=== PATIENT | female | born 1940 | race Caucasian/White ===

== ENCOUNTER → 2023-03-23 16:07 | Outpatient (REF) | payer MEDICARE, SELFPAY | LOC: RAD 16:07 | PROVIDERS: ATTENDING PHYSICIAN Family Medicine | DX: R42 Dizziness and giddiness (principal) | CPT/HCPCS: 70450 ==

== ENCOUNTER → 2023-03-27 13:41 | Outpatient (REF) | payer MEDICARE, SELFPAY ==
[2023-03-27 14:38] LABS: Phosphorus 4.6 mg/dl (2.5-4.5)
[2023-03-27 17:14] LABS: Folate 15.4 ng/ml (2.76-20); Vitamin B12 960 pg/ml (239-931)
== END ==
LOC: OIDL 13:41
PROVIDERS: ATTENDING PHYSICIAN Nurse Practitioner Primary Care
DX: D64.9 Anemia, unspecified (principal); D50.9 Iron deficiency anemia, unspecified; D51.0 Vitamin B12 deficiency anemia due to intrinsic factor deficiency
CPT/HCPCS: 82607; 82746; 84100

== ENCOUNTER → 2023-04-03 15:20 | Outpatient (REF) | payer MEDICARE, SELFPAY ==
[2023-04-03 14:32] LABS: Phosphorus 2.9 mg/dl (2.5-4.5)
== END ==
LOC: OIDL 15:20
PROVIDERS: ATTENDING PHYSICIAN Nurse Practitioner Primary Care
DX: D64.9 Anemia, unspecified (principal)
CPT/HCPCS: 84100

== ENCOUNTER → 2023-10-24 16:17 | Outpatient (REF) | payer MEDICARE, SELFPAY ==
[2023-10-24 09:55] LABS: % Basophils 2.1 % (0-2); % Eosinophils 2.7 % (0-6); % Immature Granulocytes 0.2 % (0-0.5); % Lymphocytes 24.1 % (20.5-51.1); % Monocytes 9.5 % (1.7-9.3); % Neutrophils 61.4 % (42.2-75.2); Absolute Basophils 0.1 10^3/uL (0-0.2); Absolute Eosinophils 0.1 10^3/uL (0-0.7); Absolute Lymphocytes 1.3 10^3/uL (1.2-3.4); Absolute Monocytes 0.5 10^3/uL (0.1-0.6); Absolute Neutrophils 3.2 10^3/uL (1.4-6.5); Hematocrit 35.4 % (37.0-47.0); Hemoglobin 11.2 g/dL (12.0-16.0); Mean Corp Hgb Conc. 31.6 g/dL (33.0-37.0); Mean Corpuscular Hgb 26.9 pg (27.0-31.0); Mean Corpuscular Volume 85.1 fL (81.0-99.0); Mean Platelet Volume 9.6 fL (7.4-10.4); Platelet Count 447 10^3/uL (130-400); Red Blood Cell Count 4.16 10^6/uL (4.20-5.40); Red Cell Dist. Width 13.6 % (11.5-14.5); White Blood Cell Count 5.3 10^3/uL (4.8-10.8)
== END ==
LOC: OIDL 16:17
PROVIDERS: ATTENDING PHYSICIAN Internal Medicine Hematology & Oncology
DX: D64.9 Anemia, unspecified (principal); E55.9 Vitamin D deficiency, unspecified
CPT/HCPCS: 82306; 85025

== ENCOUNTER → 2023-11-10 14:04 | Outpatient (REF) | payer MEDICARE, SELFPAY | LOC: HWRCS 14:04 | PROVIDERS: ATTENDING PHYSICIAN Internal Medicine; FAMILY PHYSICIAN Family Medicine | DX: I25.10 Atherosclerotic heart disease of native coronary artery without angina pectoris (principal); I10 Essential (primary) hypertension; R42 Dizziness and giddiness; R06.09 Other forms of dyspnea | CPT/HCPCS: 93306 ==

== ENCOUNTER → 2024-01-19 12:47 | Outpatient (REF) | payer MEDICARE, SELFPAY ==
[2024-01-19 15:49] LABS: Blood Urea Nitrogen 23 mg/dl (7-17); Calcium 9.9 mg/dl (8.4-10.2); Carbon Dioxide 29 mmol/L (22-30); Chloride 97 mmol/L (98-107); Glucose 84 mg/dl (70-99); Potassium 4.4 mmol/L (3.5-5.1); Sodium 136 mmol/L (135-145); eGFR > 60.00
[2024-01-19 16:04] LABS: Microalbumin, Random Urine 1.5 mg/dl (0.6-1.7); Microalbumin/creatinine Ratio 67.6 mg/g
== END ==
LOC: HWRAD 12:47
PROVIDERS: ATTENDING PHYSICIAN Internal Medicine
DX: N30.01 Acute cystitis with hematuria (principal); N39.0 Urinary tract infection, site not specified
CPT/HCPCS: 36415; 76770; 80048; 82043; 82570

== ENCOUNTER → 2024-04-29 16:26 | Outpatient (REF) | payer MEDICARE, SELFPAY ==
[2024-04-29 13:45] LABS: % Basophils 0.6 % (0-2); % Eosinophils 1.6 % (0-6); % Immature Granulocytes 0.1 % (0-0.5); % Monocytes 6.7 % (1.7-9.3); Absolute Basophils 0.1 10^3/uL (0-0.2); Absolute Eosinophils 0.1 10^3/uL (0-0.7); Absolute Lymphocytes 1.3 10^3/uL (1.2-3.4); Absolute Monocytes 0.5 10^3/uL (0.1-0.6); Absolute Neutrophils 6.1 10^3/uL (1.4-6.5); Hematocrit 36.9 % (37.0-47.0); Hemoglobin 12.4 g/dL (12.0-16.0); Mean Corp Hgb Conc. 33.6 g/dL (33.0-37.0); Mean Corpuscular Hgb 29.4 pg (27.0-31.0); Mean Corpuscular Volume 87.4 fL (81.0-99.0); Mean Platelet Volume 9.9 fL (7.4-10.4); Platelet Count 366 10^3/uL (130-400); Red Blood Cell Count 4.22 10^6/uL (4.20-5.40); Red Cell Dist. Width 13.3 % (11.5-14.5); White Blood Cell Count 8.1 10^3/uL (4.8-10.8)
[2024-04-29 14:50] LABS: Vitamin D, 25-OH*** 36.5 ng/mL (30-80)
== END ==
LOC: OIDL 16:26
PROVIDERS: ATTENDING PHYSICIAN Internal Medicine Hematology & Oncology
DX: D64.9 Anemia, unspecified (principal); E55.9 Vitamin D deficiency, unspecified
CPT/HCPCS: 82306; 85025

== ENCOUNTER → 2024-05-06 11:02 | Outpatient (REF) | payer MEDICARE, SELFPAY | LOC: RAD 11:02 | PROVIDERS: ATTENDING PHYSICIAN Nurse Practitioner Adult Health; FAMILY PHYSICIAN Family Medicine | DX: Z78.0 Asymptomatic menopausal state (principal) | CPT/HCPCS: 77080 ==